=== PATIENT | female | born 2000 | race Caucasian/White ===

== ENCOUNTER 2019-06-13 22:06 | Emergency (ER) | payer BC ==
[~2019-06-13] VITALS: Ht 160 cm; Wt 56.8 kg
[2019-06-13 22:18] VITALS: BP 118/76; PULSE 87; TEMP 98
== END 2019-06-13 23:35 | disposition home or self-care (01) ==
LOC: COL.ER 22:06
DX: T74.21XA Adult sexual abuse, confirmed, initial encounter (principal)

== ENCOUNTER 2019-06-13 23:26 | Outpatient (CLI) | payer BC | END 2019-06-14 03:00 | disposition home or self-care (01) | LOC: LDRO → LDR 23:26 → LDRO 06-14 03:00 | DX: Z04.41 Encounter for examination and observation following alleged adult rape (principal) | CPT/HCPCS: OP; J0696 ==

== ENCOUNTER → 2019-06-13 | Outpatient (REF) | LOC: COL.ER 22:56 | DX: T74.21XA Adult sexual abuse, confirmed, initial encounter (principal) ==